=== PATIENT | female | born 1960 | race African-American/Black ===

== ENCOUNTER 2020-12-31 18:34 | Emergency (ER) | payer MEDICAID ==
[~2020-12-31] VITALS: Ht 162.6 cm; Wt 80.0 kg
[2020-12-31] MEDS ORDERED: HYDROCODONE/ACETAMINOPHEN 5/325MG TABLET PO ONE (22:15)
[2020-12-31 23:15] VITALS: BP 132/78
== END 2020-12-31 23:15 | disposition home or self-care (01) ==
LOC: ER 18:34
DX: S16.1XXA Strain of muscle, fascia and tendon at neck level, initial encounter (principal); I10 Essential (primary) hypertension; Z88.0 Allergy status to penicillin; Z86.59 Personal history of other mental and behavioral disorders; V49.9XXA Car occupant (driver) (passenger) injured in unspecified traffic accident, initial encounter; Y93.89 Activity, other specified; Y92.89 Other specified places as the place of occurrence of the external cause; Y99.8 Other external cause status
CPT/HCPCS: 99284

== ENCOUNTER 2021-05-03 09:49 | Emergency (ER) | payer MEDICAID ==
[~2021-05-03] VITALS: Ht 160 cm; Wt 91.0 kg
[2021-05-03] MEDS ORDERED: MAGNESIUM/ALUMINUM HYDROXIDE/SIMETHICONE 30ML UDC PO STA (17:05)
[2021-05-03] MEDS ORDERED: ONDANSETRON HCL 4MG/2ML INJ IV STA (17:05)
[2021-05-03] MEDS ORDERED: SODIUM CHLORIDE 0.9% 1,000 ML IV ONE (17:15)
[2021-05-03 17:33] LABS: BASOPHILS % 0.4 % (0.0-2.0); EOSINOPHILS % 0.3 % (0.0-5.0); HEMATOCRIT. 37.8 % (36.0-48.0); HEMOGLOBIN. 12.5 g/dL (12.0-16.0); LYMPHOCYTES % 25.5 % (20.0-50.0); MEAN CORPUSCULAR HEMOGLOBIN 26.4 pg (28.0-32.0); MEAN CORPUSCULAR VOLUME 79.5 fL (81.0-99.0); MEAN PLATELET VOLUME 10.4 fl (7.4-10.4); NEUTROPHILS % 67.8 % (40.0-76.0); PLATELET 120 x1000/uL (130-400); RED BLOOD CELL COUNT 4.75 mill/uL (4.2-5.4)
[2021-05-03 17:35] LABS: CLARITY URINE CLEAR (CLEAR); COLOR URINE YELLOW (YELLOW); KETONES URINE NEGATIVE (NEGATIVE); LEUKOCYTE ESTERASE URINE 2+ (NEGATIVE); NITRITE URINE NEGATIVE (NEGATIVE); OCCULT BLOOD URINE NEGATIVE (NEGATIVE); PH URINE 5.5 (4.5-8.0); PROTEIN URINE NEGATIVE (NEGATIVE); SPECIFIC GRAVITY URINE 1.012 (1.005-1.030)
[2021-05-03 17:43] LABS: CHLORIDE 109 mEq/L (98-107)
[2021-05-03 17:49] LABS: ETHANOL BLOOD < 10 mg/dL
[2021-05-03 18:00] LABS: METHADONE URINE SCREEN NEGATIVE (NEGATIVE); OPIATES URINE SCREEN NEGATIVE (NEGATIVE)
[2021-05-03 18:02] LABS: *AMPHETAMINES SCREEN URINE NEGATIVE (NEGATIVE); *BARBITURATES SCREEN URINE NEGATIVE (NEGATIVE); *BENZODIAZEPINES SCREEN URINE NEGATIVE (NEGATIVE); *COCAINE SCREEN URINE NEGATIVE (NEGATIVE); CANNABINOID URINE SCREEN NEGATIVE (NEGATIVE); PHENCYCLIDINE URINE SCREEN NEGATIVE (NEGATIVE)
[2021-05-03 19:23] VITALS: BP 122/66
[2021-05-03] MEDS ORDERED: NITR-87 MT (19:34)
[2021-05-03] MEDS ORDERED: IBUP-2029 MT (19:35)
== END 2021-05-03 20:13 | disposition home or self-care (01) ==
LOC: ER 09:49
DX: N30.90 Cystitis, unspecified without hematuria (principal); I10 Essential (primary) hypertension; Z88.0 Allergy status to penicillin; Z86.59 Personal history of other mental and behavioral disorders
CPT/HCPCS: 36415; 74176; 80053; 80305; 80320; 81003; 83690; 85025; 96361; 96374; 99284; J2405; J7030; G0480